=== PATIENT | male | born 2000 | race Caucasian/White ===

== ENCOUNTER 2020-09-07 15:58 | Emergency (ER) | payer BC ==
[2020-09-07 16:10] VITALS: BP 120/56; PULSE 70; TEMP 98.5; BMI 24.3
[2020-09-07] MEDS ORDERED: AZITHROMYCIN 500 MG TABLET PO ONE (16:31)
[2020-09-07] MEDS ORDERED: AZITHROMYCIN 250 MG TABLET ONE (17:17)
[2020-09-07 17:53] LABS: EPI CELLS 0 /uL (0-25.1); HYALINE CASTS 0 /uL (0-3.1); URINE APPEARANCE CLOUDY; URINE BACTERIA 27 /uL (0-1359); URINE BILIRUBIN NEGATIVE (NEGATIVE); URINE COLOR YELLOW; URINE GLUCOSE (UA) NEGATIVE (NEGATIVE); URINE KETONE TRACE (NEGATIVE); URINE LEUK ESTERASE 2+ (NEGATIVE); URINE NITRITE NEGATIVE (NEGATIVE); URINE PROTEIN NEGATIVE (NEGATIVE); URINE RBC 23 /uL (0-23.9); URINE WBC 1664 /uL (0-25.8)
== END 2020-09-07 18:10 | disposition home or self-care (01) ==
LOC: JERFT 15:58
DX: A64 Unspecified sexually transmitted disease (principal); Z11.3 Encounter for screening for infections with a predominantly sexual mode of transmission
CPT/HCPCS: 36415; 81003; 87086; 87491; 87591; 99284-25